=== PATIENT | female | born 1995 | race Caucasian/White ===

== ENCOUNTER 2016-09-23 19:44 | Emergency (ER) | payer MEDICARE | END 2016-09-23 20:25 | disposition home or self-care (01) | LOC: ER 19:44 | DX: J02.0 Streptococcal pharyngitis (principal); H92.03 Otalgia, bilateral ==

== ENCOUNTER 2016-09-24 19:43 | Emergency (ER) | payer MEDICARE | END 2016-09-25 01:06 | disposition short-term general hospital (02) | LOC: ER 19:43 | DX: K91.840 Postprocedural hemorrhage of a digestive system organ or structure following a digestive system procedure (principal); J02.9 Acute pharyngitis, unspecified | CPT/HCPCS: 36415; 96361; 96374 ==